=== PATIENT | female | born 1950 | race Caucasian/White ===

== ENCOUNTER → 2020-08-11 09:38 | Outpatient (BNVA) | payer MEDICARE, OTHER, SELFPAY | PROVIDERS: PCP Nurse Practitioner Family; Referring Provider Nurse Practitioner Family; Visit Provider Nurse Practitioner Gerontology | DX: N39.0 Urinary tract infection, site not specified (principal); R31.9 Hematuria, unspecified; E11.9 Type 2 diabetes mellitus without complications | CPT/HCPCS: 81003; 99204 ==

== ENCOUNTER 2020-08-11 18:31 | Outpatient (REF) | payer MEDICARE, OTHER, SELFPAY | END 2020-08-11 18:51 | LOC: LBN 18:31 | PROVIDERS: PCP Nurse Practitioner Family; Visit Provider Nurse Practitioner Gerontology | DX: N39.0 Urinary tract infection, site not specified (principal) | CPT/HCPCS: 87086 ==

== ENCOUNTER 2020-08-18 00:38 | Outpatient (CLI) | payer MEDICARE, OTHER, SELFPAY ==
--- NOTE | 2020-08-18 07:00 | DI.CT_ITS ---
EXAM: CT ABDOMEN PELVIS WO/W CLINICAL HISTORY: recurrent UTI,HEMATURIA,R31.9,N39.0 TECHNIQUE: Imaging Protocol: Axial computed tomography images with coronal and sagittal reformatted images were created and reviewed CONTRAST MATERIAL: Intravenous: Omnipaque 350 Contrast volume:100 mL Oral: No COMPARISON: No exams were available for comparison FINDINGS: ABDOMEN: Lung Bases: Normal where visualized. Mild coronary artery calcification. Liver: Normal density. No measurable mass. Decreased attenuation is seen adjacent to the falciform li gament likely reflecting focal fatty infiltration. There is a tiny hypodensity in the right lobe of the liver. It is too small for further characterization, but likely reflects a small cyst. Portal, Superior Mesenteric, and Splenic Veins: Unremarkable. Gallbladder and Biliary Tract: No radiodense calculus or dilation. Pancreas: Pancreatic atrophy. No pancreatic mass or inflammation. Spleen: Normal. Adrenals: There is a small subcentimeter left adrenal nodule likely reflecting an adenoma. The right adrenal gland is unremarkable. Kidneys: Normal size, contour and axis. 1.1 cm nonobstructing stone in the lower pole of the left kid paulina. Mild prominence of the left renal collecting system but no radiopaque ureteral stone is identif ied. No masses seen. There is mild enhancement of the wall of the left ureter proximally. Mild asso ciated soft tissue stranding is noted. Note is made of a circum aortic left renal vein. Delayed giorgi ges of the renal collecting systems shows no evidence of obstruction. Abdominal Aorta: Abdominal portion non-dilated. Atherosclerosis. Bowel: No obstruction or bowel wall thickening. Appendix is unremarkable. Peritoneal Cavity: No ascites, collection or mesenteric inflammatory response. Lymph Nodes: Within normal limits. Bones: Degenerative changes are seen in the spine. Small round sclerotic focus is seen in the left s acrum likely reflecting a bone island. No aggressive osseous lesions are identified. Soft Tissues: Unremarkable. PELVIS: Bladder: Symmetric distention, no gross wall thickening. No bladder stone. Delayed images of the uri nary bladder show no filling defects. Reproductive Organs: Unremarkable as visualized. Lymph Nodes: Within normal limits. Bones: Please see above. IMPRESSION: 1. Nonobstructing 1.1 cm left lower pole stone. 2. Mild prominence and wall enhancement of the left renal collecting system. Differential considerat ions include a recently passed stone, infectious or inflammatory process. Please correlate clinicall y. RADIATION DOSE DELIVERED: 4,019.2mGy.cm Total DLP 4,019.2mGy.cm Total DLP DATA REPOSITORY: All CT scans at this facility are submitted to the National Radiology Data Registry (NRDR) Dose Index Registry (DIR) with the [employer] ([employer]). RADIATION OPTIMIZATION: All CT scans at this facility use at least one of these dose optimization te chniques: automated exposure control; mA and/or kV adjustment per patient size (includes targeted exa ms where dose is matched to clinical indication); or iterative reconstruction.
[2020-08-18 08:53] LABS: CREATININE 0.85 mg/dL (0.55-1.02)
[2020-08-18] MEDS: Omnipaque 350 MG/ML 100 ML BTL IJ (09:19)
[2020-08-18] MEDS: Normal Saline - Diluent 50 ML VIAL IV ×2 (09:20→09:21)
[2020-08-18] MEDS: Normal Saline Flush 10 ML SYR IVP (09:21)
== END 2020-08-18 00:58 ==
PROVIDERS: PCP Nurse Practitioner Family; Visit Provider Nurse Practitioner Gerontology
DX: N20.0 Calculus of kidney (principal); R31.9 Hematuria, unspecified; N39.0 Urinary tract infection, site not specified; E11.9 Type 2 diabetes mellitus without complications
CPT/HCPCS: 99213; 74178; 82565; J3490

== ENCOUNTER 2020-09-25 03:12 | Outpatient (CLI) | payer MEDICARE, OTHER, SELFPAY ==
[2020-09-26 22:16] LABS: SARS-CoV-2 RNA Source Nasal/Nares
[2020-09-26 22:17] LABS: SARS-CoV-2 RNA Not Detected (NotDetected)
== END 2020-09-25 03:32 ==
PROVIDERS: Urology; PCP Registered Nurse; Visit Provider Nurse Practitioner Gerontology
DX: Z11.59 Encounter for screening for other viral diseases (principal); Z01.818 Encounter for other preprocedural examination
CPT/HCPCS: U0003

== ENCOUNTER 2020-09-29 07:44 | Day surgery (SDC) | payer MEDICARE, OTHER, SELFPAY ==
[2020-09-29 07:57] VITALS: BP 128/65; PULSE 75; RESP 22; TEMP 36.7; O2SAT 96
[2020-09-29] MEDS: Lactated Ringers 1,000 ML 80 ML IV (08:32)
--- NOTE | 2020-09-29 09:38 | W.PM.HP.N ---
Date of service: 09/29/20 Time of Service: 10:02 Assessment and Plan Assessment and plan (1) Left renal stone: Status: Acute (2) Recurrent UTI: Status: Acute Assessment and plan: We will move ahead with left ureteroscopic stone manipulation History of Present Illness History of Present Illness Chief Complaint: Left kidney stone Narrative: MAURA Reyna is a 69 y/o female with recurrent UTIs. She notes that they have been going for years and she has been self treating. This past year she had decided to go to her PCP for treatment since her self treatments have not been effective recently. She notes having several UTIs over the summer. She denies seeing blood in her urine. Her typical symptoms involve dysuria, suprapubic discomfort, and a change in her frequency. At times up an infection she will also have urge incontinence. She notes that she can go the bathroom every 2-3 hours during the day. She questions if she empties completely. She does not have flank pain. She states that within a week of taking an antibiotic for UTI, the symptoms return and she goes back for another course. She notes that within the last month she was started on estradiol cream through her PCP's office. She also notes that she is using 2 different types of cream recommended by Dr. Singh the labial area. As part of her evaluation, a CT scan was done. She was found to have a greater than 1 cmm left lower pole stone with mild prominence of the collecting system. She presents for ureteroscopic stone manipulation. Review of Systems Narrative: No fevers or chills No vision change or dysphasia No thyroid dysfunction. Hx diabetes No shortness of breath, cough or hemoptysis No chest pain or palpitations No nausea, vomiting, hepatitis, ulcers, jaundice No seizures, strokes or peripheral neuropathy No bleeding disorders or anemia No gout PFSH Medical History Allergic rhinitis Breast lump Constipation Dysuria Elevated blood pressure reading Fever Hemorrhoids HLD (hyperlipidemia) Lichen sclerosus of female genitalia Obesity Posterior vaginal wall prolapse Type 2 diabetes mellitus Surgical History H/O eye surgery to repair retina Social History Smoking/Tobacco Use Status: Never Smoking risk assessment performed?: Yes Alcohol Intake: never Drug use: Never Substance use type: does not use Current gender identity: female Do you feel safe at home: Yes Do you feel safe in your relationship?: Yes Meds Home Medications and Allergies Home Medications Medication Instructions Recorded Confirmed Type atorvastatin 10 mg tablet 10 mg PO DAILY 07/22/20 09/29/20 History cholecalciferol (vitamin D3) 25 25 mcg PO DAILY 07/22/20 09/29/20 History mcg (1,000 unit) capsule clobetasol 0.05 % topical ointment 1 applic TOPICAL QHS 07/22/20 09/29/20 History estradiol 1 g VAGINAL .2xweek g 07/22/20 09/29/20 History insulin glargine 100 unit/mL (3 20 unit SUBCUT QPM 07/22/20 09/29/20 History mL) subcutaneous pen insulin lispro 100 unit/mL 15 unit SUBCUT TID 07/22/20 09/29/20 History subcutaneous pen lisinopril 5 mg tablet 5 mg PO DAILY 07/22/20 09/29/20 History magnesium oxide 400 mg (241.3 mg 400 mg PO DAILY 07/22/20 09/29/20 History magnesium) tablet meclizine 25 mg tablet 25 mg PO TID PRN 07/22/20 09/29/20 History [id number] fumarate 18 1 tab-cap PO DAILY 07/22/20 09/29/20 History mg-FA 600 mcg-vit K 40 mcg capsule olopatadine 0.1 % eye drops 1 drp OPHTHALMIC (EYE) BID 07/22/20 09/29/20 History potassium gluconate 595 mg (99 mg) 595 mg PO DAILY 07/22/20 09/29/20 History tablet inulin [Fiber Gummies] 2 g PO DAILY PRN 09/25/20 09/29/20 History Allergies Allergy/AdvReac Type Severity Reaction Status Date / Time kiwi Allergy Unverified 09/29/20 08:03 Exam Const General: cooperative and comfortable Neck Neck: supple Resp Effort & Inspection: normal respiratory effort Auscultation: clear to auscultation bilaterally Cardio Rate: regular rate Rhythm: regular rhythm GI Inspection: normal to inspection Palpation: soft and no masses Neuro General: patient alert, patient awake and patient oriented x3 Results Last Vital Signs Temp 36.7 C 09/29/20 07:57 Pulse 75 09/29/20 07:57 Resp 22 09/29/20 07:57 BP 128/65 09/29/20 07:57 Pulse Ox 96 09/29/20 07:57 COVID-19 Screening Have you, or household traveled for leisure in last 14 days?: No
[2020-09-29] MEDS: ceFAZolin 2 GM/50 ML BAG IVPB (10:35)
--- NOTE | 2020-09-29 10:45 | DI.RAD_ITS ---
EXAM: XR RETROGRADE IN OR CLINICAL HISTORY: left stone. TECHNIQUE: Fluoroscopy was provided for the referring physician for guidance with performing retrogr nicole procedure. COMPARISON: CT CT ABDOMEN PELVIS WO/W from 08/18/2020 FINDINGS: Please see procedure note for details. Fluoro Time: 38.8 seconds RADIATION DOSE DELIVERED:
[2020-09-29] MEDS: Omnipaque 300 MG/ML 50 ML BTL (11:12)
[2020-09-29] MEDS: Lidocaine 2% Jelly 6 ML SYR (11:13)
--- NOTE | 2020-09-29 12:04 | W.PM.DSUDISC ---
Discharge Plan Disposition Patient Disposition: HOME Condition: Stable Discharge Details Attending Provider: Warren Zelaya Primary Care Provider: Ella Vázquez Home Meds and New Rx's Prescriptions: New tramadol 50 mg tablet 50 mg PO Q6H PRNQty: 25 RF: 0 ciprofloxacin HCl 250 mg tablet 250 mg PO BID Qty: 14 RF: 0 No Action atorvastatin 10 mg tablet 10 mg PO DAILY RF: 0 clobetasol 0.05 % ointment 1 applic topical QHS RF: 0 estradiol 0.01 % (0.1 mg/gram) cream 1 g vaginal .2xweek RF: 0 insulin lispro [Humalog KwikPen Insulin] 100 unit/mL insulin pen 15 unit subcut TID RF: 0 lisinopril 5 mg tablet 5 mg PO DAILY RF: 0 magnesium oxide 400 mg (241.3 mg magnesium) tablet 400 mg PO DAILY RF: 0 meclizine 25 mg tablet 25 mg PO TID PRNRF: 0 Multi For Her 18 mg iron-600 mcg-40 mcg capsule 1 tab-cap PO DAILY RF: 0 olopatadine 0.1 % drops 1 drp ophthalmic (eye) BID RF: 0 potassium gluconate 595 mg (99 mg) tablet 595 mg PO DAILY RF: 0 cholecalciferol (vitamin D3) 25 mcg (1,000 unit) capsule 25 mcg PO DAILY RF: 0 Lantus Solostar U-100 Insulin 100 unit/mL (3 mL) insulin pen 20 unit subcut QPM RF: 0 Fiber Gummies 2 gram Tablet,Chewable 2 g PO DAILY PRNRF: 0 Discharge Instructions Additional Instructions: Followup 1 week for stent removal - tell my office that pt has string on stent Followup with renal US 6 to 8 weeks (can be later than that, but not sooner than that) no need to strain urine scripts for tramadol and cipro sent to pharmacy Activity:: Activity as Tolerated Shower/Bathe:: 24 hours Diet:: As Tolerated DS: Diagnosis Discharge Diagnosis (1) Left renal stone: Status: Acute (2) Recurrent UTI: Status: Acute
--- NOTE | 2020-09-29 12:13 | W.PM.OP ---
Date of service: 09/29/20 Time of Service: 12:13 Operative Note Operative Note DATE OF PROCEDURE: 09/29/20 PRE-OP DIAGNOSIS: Left kidney stone POST-OP DIAGNOSIS: same PROCEDURE: cystoscopy, left retrograde pyelogram, left flexible ureteroscopy, holmium laser lithotripsy of stone, insert left ureteral stent SURGEON: Warren Zelaya ANESTHESIA: other (general) ESTIMATED BLOOD LOSS: 50 PATHOLOGY: none sent COMPLICATIONS: None Patient was transported to: PACU Patient's condition: stable Implants: 4.8 Serbian by 22 to 30 cm left ureteral stent Indications: This is a 69-year-old woman who has a history of recurrent Klebsiella urinary tract infections. As part of her evaluation, she underwent CT scan which demonstrated a 12 mm stone in the lower pole of the left kidney. We had recommended percutaneous nephrolithotomy as a means of rendering the patient stone free, but she preferred to have her procedure locally. She comes in for flexible ureteroscopy with holmium laser lithotripsy Findings: stone in left lower pole calyx Procedure Description: The patient was brought to the operating room on 09/29/2020. After successful induction of general anesthesia, she was placed in the dorsal lithotomy position. She was given preoperative IV antibiotics. Her genitalia was prepped and draped. 2% Xylocaine jelly was instilled into the urethra to act as a local anesthetic. A 22 Serbian rigid cystoscope was then passed through the urethra into the bladder. Bladder was inspected with a 30 degree lens. The bladder appeared normal with no papillary or nodular lesions. Both ureteral orifice ease appeared normal. The left ureteral orifice was cannulated with a 6 Serbian access catheter. Retrograde pyelogram was obtained by injecting Omnipaque through the access cath under fluoroscopic guidance. No stones were seen within the ureter. A filling defect was seen in the lower pole calyx. A Glidewire was then advanced through the access catheter and the catheter was removed. A dual-lumen catheter was then advanced over the wire and a second wire was positioned. We chose one of the wires as a working wire and the other is a safety wire. A ureteral access sheath was then advanced over the working wire. The working wire was removed leaving the safety wire in place. The flexible ureteroscope was then passed through the access sheath into the left kidney. The calyces were then inspected and a large stone could be seen in the lower pole calyx. I then used a 272 ?m holmium laser fiber to treat the stone. We used a power setting of 800 and a rate of 8. The stone fragmented fairly well. Given the acute angle to access the stone, I was unable to extract stone fragments. We will elect to place a 4.8 Serbian variable length stent in the kidney. We positioned the stent over the safety wire. The proximal end was curled in the upper pole calyx and the distal end was curled in the bladder. The patient tolerated this procedure well with no complications. She will return in 1 week to have her stent removed.
[2020-09-29 12:16] VITALS: BP 105/36; PULSE 72; RESP 18; TEMP 36; O2SAT 93
[2020-09-29 12:21] VITALS: BP 83/44; PULSE 73; RESP 18; TEMP 36; O2SAT 99
[2020-09-29 12:26] VITALS: BP 112/32; PULSE 68; RESP 14; TEMP 36.4; O2SAT 97
[2020-09-29 12:40] VITALS: BP 110/39; PULSE 70; RESP 18; TEMP 36.5; O2SAT 95
[2020-09-29 12:55] VITALS: BP 111/39; PULSE 77; RESP 18; TEMP 36.5; O2SAT 95
[2020-09-29] MEDS: Phenazopyridine 200 MG TAB PO (13:14)
== END 2020-09-29 14:04 | disposition home or self-care (01) ==
PROVIDERS: PCP Registered Nurse; Visit Provider Urology
PROC: (CPT 52356; principal; 2020-09-29 09:15)
DX: N20.0 Calculus of kidney (principal); Z87.440 Personal history of urinary (tract) infections; E78.5 Hyperlipidemia, unspecified; E11.9 Type 2 diabetes mellitus without complications
CPT/HCPCS: 52356; NC; 74420; J0690; J1100; J1885; J2001; J2250; J2405; J2704; Q9967

== ENCOUNTER → 2020-10-06 08:28 | Outpatient (BNVA) | payer MEDICARE, OTHER, SELFPAY | PROVIDERS: PCP Registered Nurse; Referring Provider Registered Nurse; Visit Provider Nurse Practitioner Gerontology | DX: Z48.816 Encounter for surgical aftercare following surgery on the genitourinary system (principal); N20.0 Calculus of kidney; E11.9 Type 2 diabetes mellitus without complications; N39.0 Urinary tract infection, site not specified | CPT/HCPCS: 81003; 99213 ==

== ENCOUNTER 2020-10-06 10:01 | Outpatient (REF) | payer MEDICARE, OTHER, SELFPAY | END 2020-10-06 10:21 | LOC: LBN 10:01 | PROVIDERS: PCP Registered Nurse; Visit Provider Nurse Practitioner Gerontology | DX: N39.0 Urinary tract infection, site not specified (principal) | CPT/HCPCS: 87086 ==

== ENCOUNTER 2021-03-30 00:47 | Outpatient (CLI) | payer MEDICARE, OTHER, SELFPAY ==
--- NOTE | 2021-03-30 07:00 | DI.US_ITS ---
Exam(s) US RENAL EXAM: US RENAL CLINICAL HISTORY: r/o hydronephrosis after ureteroscopy,LT RENAL STONE,N20.0 TECHNIQUE: Ultrasound of both kidneys performed using standard protocol. COMPARISON: CT CT ABDOMEN PELVIS WO/W from 08/18/2020 FINDINGS: RIGHT KIDNEY: Measures 10.9 cm in length. No cysts evident. Normal cortical thickness and corticomedullary differen tiation .No solid masses No intrarenal calculi nor hydronephrosis.Extrarenal pelvis noted. LEFT KIDNEY: Measures 11.6 cm in length. No cysts evident. Normal cortical thickness and corticomedullary differe ntiaion. No solids masses. There is a 4-5 millimeter nonobstructive calculus in the lower pole regio n. URINARY BLADDER: Prevoid volume is 135 cc Postvoid volume is 0 cc No evidence of bladder mass nor diverticuli. Ureterovesical jets: Both identified and appear symmetrical IMPRESSION: 1. There is a small 4-5 millimeter nonobstructive calculus in lower pole of the left kidney. This a ppears slightly smaller than its size on the CT scan of August 2020. 2. No significant findings in the opposite-right kidney. Extrarenal pelvis noted. No obvious abnormality in the urinary bladder. DATA REPOSITORY:
== END 2021-03-30 01:07 ==
PROVIDERS: PCP Registered Nurse; Visit Provider Urology
DX: N20.0 Calculus of kidney (principal)
CPT/HCPCS: 76770

== ENCOUNTER → 2021-04-02 09:45 | Outpatient (BNVA) | payer MEDICARE, OTHER, SELFPAY | PROVIDERS: PCP Nurse Practitioner Family; Referring Provider Registered Nurse; Visit Provider Nurse Practitioner Gerontology | DX: N20.0 Calculus of kidney (principal) | CPT/HCPCS: 99213 ==

== ENCOUNTER → 2021-07-15 14:11 | Outpatient (BNVA) | payer MEDICARE, OTHER, SELFPAY | PROVIDERS: PCP Nurse Practitioner Family; Referring Provider Nurse Practitioner Family; Visit Provider Nurse Practitioner Gerontology | DX: N20.0 Calculus of kidney (principal); N39.0 Urinary tract infection, site not specified | CPT/HCPCS: 81003; 99214 ==

== ENCOUNTER 2021-07-15 17:49 | Outpatient (REF) | payer MEDICARE, OTHER, SELFPAY | END 2021-07-15 17:50 | disposition home or self-care (01) | LOC: LBN 17:49 | PROVIDERS: PCP Nurse Practitioner Family; Visit Provider Nurse Practitioner Gerontology | DX: N39.0 Urinary tract infection, site not specified (principal) | CPT/HCPCS: 87077; 87086 ==

== ENCOUNTER 2021-08-21 00:16 | Outpatient (CLI) | payer MEDICARE, OTHER, SELFPAY ==
--- NOTE | 2021-08-21 | DI.RAD_ITS ---
Exam(s) XR ABDOMEN FLAT PLATE EXAM: 2D digital imaging was performed. CLINICAL HISTORY: MONITORING LT KIDNEY STONES, H/O RENAL CALCULI,Z87.442,N20.0,CALCULUS OF. COMPARISON: CT CT RENAL COLIC from 06/21/[address] RENAL COLIC from 06/21/2021 TECHNIQUE: Supine views of the abdomen performed. FINDINGS: BOWEL GAS PATTERN: Nondistended. Normal quantity of stool. CALCIFICATIONS: 10 millimeter stone lower pole left kidney, grossly unchanged when compared with the previous CT. OSSEOUS STRUCTURES: Degenerative changes. Bone island left ilium. OTHER FINDINGS: Lung bases clear. IMPRESSION: 1. Nonobstructive bowel gas pattern. 2. Stable small appearance of the stone to lower pole of the left kidney. DATA REPOSITORY: RADIATION DOSE DELIVERED:
== END 2021-08-21 00:36 ==
PROVIDERS: PCP Nurse Practitioner Family; Visit Provider Nurse Practitioner Gerontology
DX: N20.0 Calculus of kidney (principal); Z87.442 Personal history of urinary calculi
CPT/HCPCS: 74018

== ENCOUNTER → 2022-05-06 01:43 | Outpatient (CLI) | payer MEDICARE, OTHER, SELFPAY ==
--- NOTE | 2022-05-06 07:35 | DI.US_ITS ---
Exam(s) US RENAL EXAM: US RENAL CLINICAL HISTORY: Monitoring size and position of left kidney stone,N20.0. TECHNIQUE: Lopez scale, color and spectral Doppler were used. COMPARISON: US US RENAL from 03/30/[address] RENAL COLIC from 06/21/2021 CR XR ABDOMEN FLAT PLATE from 08/21/2021 FINDINGS: Renal size in cm: Right: 10.3. Left: 10.8. Echogenicity: Normal. Hydronephrosis: No. Cyst or mass: No. Nephrolithiasis: There is a 1 cm stone in the inferior pole of the left kidney. Other findings: None. Bladder:Normal. Ureteral jets: Right: Visualized and unremarkable. Left: Visualized and unremarkable. Prevoid vol:69 cc Postvoid vol:Not obtained on this examination. Renal color flow: Symmetric and within normal limits. IMPRESSION: 1 cm left lower pole stone. No hydronephrosis. DATA REPOSITORY:
== END ==
PROVIDERS: PCP Nurse Practitioner Family; Visit Provider Nurse Practitioner Gerontology
DX: N20.0 Calculus of kidney (principal)
CPT/HCPCS: 76770

== ENCOUNTER → 2022-05-11 13:02 | Outpatient (BNVA) | payer MEDICARE, OTHER, SELFPAY | PROVIDERS: PCP Nurse Practitioner Family; Referring Provider Nurse Practitioner Family; Visit Provider Nurse Practitioner Gerontology | DX: N20.0 Calculus of kidney (principal); N39.0 Urinary tract infection, site not specified | CPT/HCPCS: 81003; 99213 ==

== ENCOUNTER 2022-05-11 16:02 | Outpatient (REF) | payer MEDICARE, OTHER, SELFPAY | END 2022-05-11 16:03 | disposition home or self-care (01) | LOC: LBN 16:02 | PROVIDERS: PCP Nurse Practitioner Family; Visit Provider Nurse Practitioner Gerontology | DX: N39.0 Urinary tract infection, site not specified (principal) | CPT/HCPCS: 87086 ==

== ENCOUNTER 2023-05-05 01:30 | Outpatient (CLI) | payer MEDICARE, OTHER, SELFPAY ==
--- NOTE | 2023-05-05 08:30 | DI.US_ITS ---
Exam(s) US RENAL EXAM: US RENAL CLINICAL HISTORY: monitoring renal stone,LT,N20.0. TECHNIQUE: Lopez scale, color and spectral Doppler were used. COMPARISON: US US RENAL from 03/30/[address] RENAL COLIC from 06/21/2021 US US RENAL from 05/06/2022 FINDINGS: Renal size in cm: Right: 9.6 left: 9.7 Echogenicity: Normal Hydronephrosis: Stable appearance of mildly prominent right renal pelvis. Cyst or mass: No Nephrolithiasis: 1.1 centimeter stone lower pole left kidney. Bladder:Normal . Both ureteral jets were visualized. Prevoid vol: 226 Postvoid vol:0 IMPRESSION: 11 millimeter stone lower pole left kidney. DATA REPOSITORY:
== END 2023-05-05 01:50 ==
LOC: DI 01:31
PROVIDERS: PCP Nurse Practitioner Family; Visit Provider Nurse Practitioner Gerontology
DX: N20.0 Calculus of kidney (principal)
CPT/HCPCS: 76770

== ENCOUNTER → 2023-05-11 12:53 | Outpatient (BNVA) | payer MEDICARE, OTHER, SELFPAY | PROVIDERS: PCP Nurse Practitioner Family; Visit Provider Nurse Practitioner Gerontology | DX: N20.0 Calculus of kidney (principal); Z87.440 Personal history of urinary (tract) infections | CPT/HCPCS: 99213 ==

== ENCOUNTER 2024-04-20 05:52 | Day surgery (SDC) | payer MEDICARE, OTHER, SELFPAY ==
[2024-04-20 06:40] VITALS: BP 154/57; PULSE 79; RESP 16; TEMP 36.4; O2SAT 96
--- NOTE | 2024-04-20 07:04 | W.ANESPRE ---
General Info Date of Service Date Performed: 04/20/24 Height: 5 ft 1 in Weight: 80.8 kg Body Mass Index (BMI): 33.6 Surgical Procedure: Operation Date: 04/20/24 07:40 Proposed Procedure Side Surgeon p Cataract Extraction with IOL Implant Right Samir Nixon MD Meds Allergies and Home Medications Allergies Allergy/AdvReac Type Severity Reaction Status Date / Time ciprofloxacin Allergy palpitation Verified 04/20/24 06:48 s kiwi AdvReac Other (See Verified 04/20/24 06:48 Comment) Home Medication Medication Instructions Recorded cholecalciferol (vitamin D3) 25 25 mcg PO DAILY 07/22/20 mcg (1,000 unit) capsule clobetasol 0.05 % topical ointment 1 applic topical QHS 07/22/20 estradiol 0.01% (0.1 mg/gram) 1 g vaginal .2xweek 07/22/20 vaginal cream insulin lispro 100 unit/mL 15 unit subcut TID 07/22/20 subcutaneous pen (Humalog KwikPen (U-100) Insulin) lisinopril 5 mg tablet 5 mg PO DAILY 07/22/20 magnesium oxide 400 mg (241.3 mg 400 mg PO DAILY 07/22/20 magnesium) tablet meclizine 25 mg tablet 25 mg PO TID PRN 07/22/20 [id number] fumarate 18 1 tab-cap PO DAILY 07/22/20 mg-FA 600 mcg-vit K 40 mcg capsule (Multi For Her) olopatadine 0.1 % eye drops 1 drp ophthalmic (eye) BID 07/22/20 potassium gluconate 595 mg (99 mg) 595 mg PO DAILY 07/22/20 tablet inulin 2 gram chewable tablet 2 g PO DAILY PRN 09/25/20 (Fiber Gummies) tramadol 50 mg tablet 50 mg PO Q6H PRN #25 tabs 09/29/20 atorvastatin 10 mg tablet 20 mg PO DAILY 05/11/23 Current Visit Medications: Current Medications Generic Name Dose Route Start Last Admin Trade Name Freq PRN Reason Stop Dose Admin Acetaminophen 1,000 mg 04/20/24 06:00 Acetaminophen 500 Mg Tab PO 05/20/24 05:59 Q4H PRN PRN Balanced Salt Solution 500 ml 04/20/24 06:00 Balanced Salt Soln.-Plus 500 Ml Bag OP 05/20/24 05:59 DIRECTED [facility] Miscellaneous Medication 0 ml 04/20/24 06:00 Prednisolone 1%, Moxifloxacin 0.5%, Bromfenac 0.09% 5ml Btl OD 05/20/24 05:59 DIRECTED [facility] Miscellaneous Medication 0 ml 04/20/24 06:00 04/20/24 06:57 Tropicam./Phenyleph. (1/2.5%) 10 Ml Btl OD 05/20/24 05:59 1 drp DIRECTED [facility] Administration Tetracaine HCl 0 ml 04/20/24 06:00 Tetracaine 0.5% 4 Ml Btl OD 05/20/24 05:59 DIRECTED [facility] PFSH Active Problems Active Problems: Problem Status Onset Code Nuclear age-related cataract, right eye H25.11 Left renal stone N20.0 Recurrent UTI N39.0 Medical History Medical History Diabetes type I w/ pump Elevated blood pressure reading Breast lump Dysuria Fever Lichen sclerosus of female genitalia Posterior vaginal wall prolapse Constipation Allergic rhinitis Hemorrhoids Obesity HLD (hyperlipidemia) Type 2 diabetes mellitus Pt. is Type I not type II Surgical History Surgical History H/O eye surgery to repair retina Tobacco Smoking/Tobacco Use Status: Never Alcohol Alcohol Intake: never Substance Use Substance use: Never Substance use type: does not use Vital Signs and Lab Results Vital Signs Most Recent Vital Signs in EMR: Most Recent Vital Signs Temp Pulse Resp BP Pulse Ox 36.4 C L 79 16 154/57 H 96 04/20/24 06:40 04/20/24 06:40 04/20/24 06:40 04/20/24 06:40 04/20/24 06:40 Point of Care Results Point of Care Results: blood sugar 125 Lab Results Blood Type / Crossmatch: No Data to Display Complete Blood Count: No Data to Display Complete Metabolic Panel: No Data to Display Liver Function Panel: No Data to Display Coagulation Panel: No Data to Display Cardiac Panel: No Data to Display Arterial Blood Gas: No Data to Display Venous Blood Gas: No Data to Display Pancreas Panel: No Data to Display Thyroid Panel: No Data to Display Infectious Disease: No Data to Display Blood Cultures: No Data to Display Toxicology Panel: No Data to Display Anesthesia Assessment and Plan Anesthesia History Personal History: No History of Anesthesia Complications Family History: No Family History of Anesthesia Complications Exercise Tolerance Exercise Tolerance: Metabolic Equivalents>4 Pertinent Negatives Pertinent Negatives: No Symptoms of GERD, No Major Cardiovascular Symptoms or Complaints, No Major Pulmonary Symptoms or Complaints and No History of CVA/TIA Cardiac & Pulmonary Exam Cardiac Exam: Normal S1/S2 Heart Sounds Pulmonary Exam: Clear Bilateral Breath Sounds Implantable Cardiac Device Does patient have a Pacemaker or an ICD?: No Airway Exam Known Difficult Airway: No Mallampati Class: 2 Mouth Opening: Normal (> 3cm) Thyromental Distance: Greater than 3 cm Neck Range of Motion: Full ROM Neck Circumference: Normal Teeth Condition: Normal Dentition ASA Classification ASA Score: ASA 3 Emergency Case?: No NPO Status NPO Status: NPO Clears >2 hours, Solids >8 hours Anesthesia Plan Resuscitation Status: Full Code Anesthesia Technique: MAC Anesthesia Airway Planned: Natural Airway Monitors Used: Standard Monitors
[2024-04-20 07:07] VITALS: BMI 33.6
[2024-04-20] MEDS: Lidocaine 1% Pres-Free 5 ML VIAL (07:29)
[2024-04-20] MEDS: Duovisc Viscoelastic System EACH 1 EACH (07:31)
[2024-04-20] MEDS: Balanced Salt Soln.-PLUS 500 ML BAG OP (07:33)
[2024-04-20] MEDS: Povidone-Iodine Ophth 30 ML BTL (07:33)
[2024-04-20] MEDS: Tetracaine 0.5% 4 ML BTL OD (07:34)
[2024-04-20 07:53] VITALS: BP 127/54; PULSE 67; RESP 18; TEMP 36.3; O2SAT 98
--- NOTE | 2024-04-20 07:54 | W.PM.DSUDISC ---
Date of service: 04/20/24 Time of Service: 07:55 Discharge Plan Disposition Patient Disposition: Home Discharge Details Attending Provider: Samir Nixon Primary Care Provider: Enoc Archer Home Meds and New Rx's Prescriptions: No Action clobetasol 0.05 % ointment 1 applic topical QHS estradiol 0.01 % (0.1 mg/gram) cream 1 g vaginal .2xweek insulin lispro [Humalog KwikPen Insulin] 100 unit/mL insulin pen 15 unit subcut TID Rx Instructions: 15-20 units TID lisinopril 5 mg tablet 5 mg PO DAILY magnesium oxide 400 mg (241.3 mg magnesium) tablet 400 mg PO DAILY meclizine 25 mg tablet 25 mg PO TID PRN Multi For Her 18 mg iron-600 mcg-40 mcg capsule 1 tab-cap PO DAILY olopatadine 0.1 % drops 1 drp ophthalmic (eye) BID Rx Instructions: separate doses by at least 6-8 hours potassium gluconate 595 mg (99 mg) tablet 595 mg PO DAILY cholecalciferol (vitamin D3) 25 mcg (1,000 unit) capsule 25 mcg PO DAILY atorvastatin 10 mg tablet 20 mg PO DAILY Fiber Gummies 2 gram Tablet,Chewable 2 g PO DAILY PRN tramadol 50 mg tablet 50 mg PO Q6H PRNQty: 25 0RF Discharge Instructions Stand Alone Forms: [facility] Post-Op CataractClaudio (DSU) Discharge Orders Discharge Orders: Discharge Order (Routine); Ordered 04/20/24 Ordered By: Samir Nixon DS: Diagnosis Discharge Diagnosis (1) Nuclear age-related cataract, right eye: Status: Resolved
--- NOTE | 2024-04-20 07:55 | ROE_ITS ---
Date of service: 04/20/24 Time of Service: 07:55 Operative Note Operative Note DATE OF PROCEDURE: 04/20/24 PRE-OP DIAGNOSIS: Nuclear cataract, right eye Status post pars plana vitrectomy for vitreous hemorrhage, right eye POST-OP DIAGNOSIS: same PROCEDURE: Cataract extraction using phacoemulsification with intraocular lens implant, right eye SURGEON: Samir Nixon ANESTHESIA TYPE: Local By Surgeon and MAC Refer to Anesthesia Record ESTIMATED BLOOD LOSS: 0 PATHOLOGY: none sent COMPLICATIONS: None Patient was transported to: same day Patient's condition: stable Implants: Heriberto Clareon [id number] Indications: Progressive decreased vision due to cataract, right eye Procedure Description: CATARACT SURGERY OPERATIVE REPORT PREOPERATIVE DIAGNOSIS: Nuclear cataract, right eye Status post pars plana vitrectomy for vitreous hemorrhage, right eye POSTOPERATIVE DIAGNOSIS: Same OPERATION: Cataract extraction using phacoemulsification with posterior chamber intraocular lens implant, right eye. IOL: IOL T Rail Turner/Model: Heriberto Clareon [id number] IOL Power: + 22.0 diopters IOL Serial Number: [id number] Optic Diameter: 6.0mm Haptic/Overall Diameter: 13.0mm PHACO INFO: Heriberto Centurion Vision System with OZil and Active Fluidics Cumulative Dispersed Energy (CDE): 7.35 seconds SURGEON: Samir Nixon MD, RIKKI ANESTHESIA: Monitored Anesthesia Care (MAC), with local sub-tenon's anesthetic infiltration COMPLICATIONS: None SPECIMENS: None INDICATIONS FOR PROCEDURE: The patient is a 73-year-old lady who has previously suffered a vitreous hemorrhage in the right eye and underwent subsequent pars plana vitrectomy at [facility] in 2016. She has developed a significant nuclear cataract in the right eye and desires cataract surgery there and attempt to improve and maximize her vision. The option of cataract surgery was offered to the patient and she wished to proceed. See office notes for detailed information. PROCEDURE: The correct surgical eye was identified and marked as the right eye and the pupil was dilated in the preoperative area using mydriatics and cycloplegics. The dilated pupil size was 6.0 mm. The patient elected to proceed without oral sedation. The patient was brought to the operating room where cardiopulmonary monitoring was instituted and surgical time-out was performed, confirming the correct operative eye and IOL power. Topical anesthesia was administered and ophthalmic povidone-iodine 5% was instilled into the conjunctival fornices. The slava-ocular area was prepped with Betadine 10% solution and draped in the usual sterile fashion for intraocular surgery, including an aperture drape. A Tegaderm transparent film dressing was cut in half and used to cover the lashes and lid margins. Care was taken to sequester the lashes and lid margins under the Tegaderm dressing. A lid speculum was placed between the lids of the operative eye and the Heriberto LuxOR Revalia operating microscope was maneuvered into position. Nicole scissors were then used to make a conjunctival buttonhole approximately 6mm posterior to the limbus in the inferonasal quadrant. Blunt dissection was carried out to expose bare sclera, and a blunt-tipped sub-tenon?s anesthesia cannula was introduced and passed posteriorly along the globe where non- preserved plain lidocaine was injected into posterior sub-Tenon?s space. A sideport knife was used to make a paracentesis port. Intraocular phenylephrine/lidocaine was injected into the anterior chamber. The anterior chamber was then filled with viscoelastic. A keratome knife was used to construct a two--plane clear corneal tunnel extending 2.0mm into clear cornea. A flap was raised on the anterior capsule and capsulorhexis forceps were used to complete a continuous curvilinear capsulorhexis of 5.0 mm. Balanced salt solution was then used to perform cortical cleaving hydrodissection and nuclear hydrodelineation until the lens could be freely rotated within the capsular bag. The lens nucleus was then disassembled and removed within the capsular bag and iris plane using phacoemulsification. Residual cortical material was removed using the I/A handpiece. The posterior capsule was carefully polished to remove as much residual lens epithelial cells as safely possible. The capsular bag was then inflated and the anterior chamber deepened with cohesive viscoelastic. The lens implant described above was inserted into the capsular bag using the Heriberto Autonome Injector. A Kuglen hook was used to dial the IOL into position. Residual viscoelastic was then removed first from posterior to the IOL, then from the anterior chamber using the I/A handpiece. The lens implant was noted to center nicely within the capsular bag. The incisions were stromally hydrated, and the anterior chamber was reformed using BSS. Then 0.5cc of moxifloxacin 1.0mg/ml were injected into the capsular bag and anterior chamber. The incisions were checked with a Weck spear and found to be secure. Several drops of ophthalmic povidone-iodine 5% were then applied to the eye followed by two drops of combination steroid/NSAID/antibiotic solution. The drapes were removed and a clear plastic protective eye shield was placed over the eye. The patient was then returned to Same Day Surgery in stable condition.
--- NOTE | 2024-04-20 08:07 | W.ANESPOSTOP ---
Postoperative Evaluation Date, Time and Location Date Performed: 04/20/24 Time Performed: 08:04 Patient Location: Day Surgery Unit Vital Signs Most Recent Imported Vital Signs: Most Recent Vital Signs Temp Pulse Resp BP Pulse Ox 36.3 C L 67 18 127/54 L 98 04/20/24 07:53 04/20/24 07:53 04/20/24 07:53 04/20/24 07:53 04/20/24 07:53 Pain Score Most Recent Pain Score: Most Recent Pain Score Pain Level 0 04/20/24 07:53 Assessment Mental Status: Awake (Alert & Oriented to Patient Baseline) Airway and Respiratory Function: Patent airway with normal (patient baseline) respiratory exam Cardiovascular Function: Hemodynamically Stable Hydration Status: Adequately Hydrated Nausea & Vomiting: No Nausea or Vomiting Pain: Pt. Denies Any Pain Peripheral Nerve Block: Patient did not receive a nerve block
== END 2024-04-20 08:11 | disposition home or self-care (01) ==
LOC: SUR 05:53
PROVIDERS: PCP Nurse Practitioner Family; Visit Provider Ophthalmology
PROC: (CPT 66984; principal; 2024-04-20 07:30)
DX: H25.11 Age-related nuclear cataract, right eye (principal); E11.9 Type 2 diabetes mellitus without complications
CPT/HCPCS: 66984; 00123; V2632; J2003

== ENCOUNTER 2024-05-04 08:31 | Day surgery (SDC) | payer MEDICARE, OTHER, SELFPAY ==
[2024-05-04 09:16] VITALS: BP 147/63; PULSE 73; RESP 16; TEMP 36.3; O2SAT 96
[2024-05-04 09:44] VITALS: BMI 33.6
--- NOTE | 2024-05-04 09:44 | W.ANESPRE ---
General Info Date of Service Date Performed: 05/04/24 Height: 5 ft 1 in Weight: 80.8 kg Body Mass Index (BMI): 33.6 Surgical Procedure: Operation Date: 05/04/24 10:55 Proposed Procedure Side Surgeon p Cataract Extraction with IOL Implant Left Samir Nixon MD Meds Allergies and Home Medications Allergies Allergy/AdvReac Type Severity Reaction Status Date / Time ciprofloxacin Allergy palpitation Verified 05/04/24 09:27 s kiwi AdvReac Other (See Verified 05/04/24 09:27 Comment) Home Medication Medication Instructions Recorded cholecalciferol (vitamin D3) 25 25 mcg PO DAILY 07/22/20 mcg (1,000 unit) capsule clobetasol 0.05 % topical ointment 1 applic topical QHS 07/22/20 estradiol 0.01% (0.1 mg/gram) 1 g vaginal .2xweek 07/22/20 vaginal cream insulin lispro 100 unit/mL 15 unit subcut TID 07/22/20 subcutaneous pen (Humalog KwikPen (U-100) Insulin) lisinopril 5 mg tablet 5 mg PO DAILY 07/22/20 magnesium oxide 400 mg (241.3 mg 400 mg PO DAILY 07/22/20 magnesium) tablet meclizine 25 mg tablet 25 mg PO TID PRN 07/22/20 [id number] fumarate 18 1 tab-cap PO DAILY 07/22/20 mg-FA 600 mcg-vit K 40 mcg capsule (Multi For Her) olopatadine 0.1 % eye drops 1 drp ophthalmic (eye) BID 07/22/20 potassium gluconate 595 mg (99 mg) 595 mg PO DAILY 07/22/20 tablet inulin 2 gram chewable tablet 2 g PO DAILY PRN 09/25/20 (Fiber Gummies) tramadol 50 mg tablet 50 mg PO Q6H PRN #25 tabs 09/29/20 atorvastatin 10 mg tablet 20 mg PO DAILY 05/11/23 Current Visit Medications: Current Medications Generic Name Dose Route Start Last Admin Trade Name Freq PRN Reason Stop Dose Admin Acetaminophen 1,000 mg 05/04/24 06:00 Acetaminophen 500 Mg Tab PO 06/03/24 05:59 Q4H PRN PRN Balanced Salt Solution 500 ml 05/04/24 06:00 Balanced Salt Soln.-Plus 500 Ml Bag OP 06/03/24 05:59 DIRECTED S[facility] Miscellaneous Medication 0 ml 05/04/24 06:00 Prednisolone 1%, Moxifloxacin 0.5%, Bromfenac 0.09% 5ml Btl OS 06/03/24 05:59 DIRECTED [facility] Miscellaneous Medication 0 ml 05/04/24 06:00 05/04/24 09:33 Tropicam./Phenyleph. (1/2.5%) 10 Ml Btl OS 06/03/24 05:59 1 drp DIRECTED [facility] Administration Tetracaine HCl 0 ml 05/04/24 06:00 Tetracaine 0.5% 4 Ml Btl OS 06/03/24 05:59 DIRECTED [facility] PFSH Active Problems Active Problems: Problem Status Onset Code Nuclear age-related cataract, left eye H25.12 Nuclear age-related cataract, right eye H25.11 Left renal stone N20.0 Recurrent UTI N39.0 Medical History Medical History Diabetes type I w/ pump Elevated blood pressure reading Breast lump Dysuria Fever Lichen sclerosus of female genitalia Posterior vaginal wall prolapse Constipation Allergic rhinitis Hemorrhoids Obesity HLD (hyperlipidemia) Type 2 diabetes mellitus Pt. is Type I not type II Surgical History Surgical History H/O eye surgery to repair retina Tobacco Smoking/Tobacco Use Status: Never Alcohol Alcohol Intake: never Substance Use Substance use: Never Substance use type: does not use Vital Signs and Lab Results Vital Signs Most Recent Vital Signs in EMR: Most Recent Vital Signs Temp Pulse Resp BP Pulse Ox 36.3 C L 73 16 147/63 H 96 05/04/24 09:16 05/04/24 09:16 05/04/24 09:16 05/04/24 09:16 05/04/24 09:16 Lab Results Blood Type / Crossmatch: No Data to Display Complete Blood Count: No Data to Display Complete Metabolic Panel: No Data to Display Liver Function Panel: No Data to Display Coagulation Panel: No Data to Display Cardiac Panel: No Data to Display Arterial Blood Gas: No Data to Display Venous Blood Gas: No Data to Display Pancreas Panel: No Data to Display Thyroid Panel: No Data to Display Infectious Disease: No Data to Display Blood Cultures: No Data to Display Toxicology Panel: No Data to Display Anesthesia Assessment and Plan Anesthesia History Personal History: No History of Anesthesia Complications Family History: No Family History of Anesthesia Complications Exercise Tolerance Exercise Tolerance: Metabolic Equivalents>4 Pertinent Negatives Pertinent Negatives: No Symptoms of GERD Cardiac & Pulmonary Exam Cardiac Exam: Normal S1/S2 Heart Sounds Pulmonary Exam: Clear Bilateral Breath Sounds Implantable Cardiac Device Does patient have a Pacemaker or an ICD?: No Airway Exam Known Difficult Airway: No Mallampati Class: 2 Mouth Opening: Normal (> 3cm) Thyromental Distance: Greater than 3 cm Neck Range of Motion: Full ROM Neck Circumference: Normal Teeth Condition: Normal Dentition ASA Classification ASA Score: ASA 3 Emergency Case?: No NPO Status NPO Status: NPO Clears >2 hours, Solids >8 hours Anesthesia Plan Resuscitation Status: Full Code Anesthesia Technique: MAC Anesthesia Airway Planned: Natural Airway Monitors Used: Standard Monitors Preoperative Comments:: No MKO
[2024-05-04] MEDS: Tetracaine 0.5% 4 ML BTL OS (10:27)
[2024-05-04] MEDS: Povidone-Iodine Ophth 30 ML BTL (10:28)
[2024-05-04] MEDS: Duovisc Viscoelastic System EACH 1 EACH (10:32)
[2024-05-04] MEDS: Lidocaine 1% Pres-Free 5 ML VIAL (10:33)
[2024-05-04] MEDS: Balanced Salt Soln.-PLUS 500 ML BAG OP (10:37)
--- NOTE | 2024-05-04 10:52 | W.PM.DSUDISC ---
Date of service: 05/04/24 Time of Service: 10:52 Discharge Plan Disposition Patient Disposition: Home Discharge Details Attending Provider: Samir Nixon Primary Care Provider: Enoc Archer Home Meds and New Rx's Prescriptions: No Action clobetasol 0.05 % ointment 1 applic topical QHS estradiol 0.01 % (0.1 mg/gram) cream 1 g vaginal .2xweek insulin lispro [Humalog KwikPen Insulin] 100 unit/mL insulin pen 15 unit subcut TID Patient Comments: 05/04/24: pt on insulin pump Rx Instructions: 15-20 units TID lisinopril 5 mg tablet 5 mg PO DAILY magnesium oxide 400 mg (241.3 mg magnesium) tablet 400 mg PO DAILY meclizine 25 mg tablet 25 mg PO TID PRN Multi For Her 18 mg iron-600 mcg-40 mcg capsule 1 tab-cap PO DAILY olopatadine 0.1 % drops 1 drp ophthalmic (eye) BID Rx Instructions: separate doses by at least 6-8 hours potassium gluconate 595 mg (99 mg) tablet 595 mg PO DAILY cholecalciferol (vitamin D3) 25 mcg (1,000 unit) capsule 25 mcg PO DAILY atorvastatin 10 mg tablet 20 mg PO DAILY Fiber Gummies 2 gram Tablet,Chewable 2 g PO DAILY PRN tramadol 50 mg tablet 50 mg PO Q6H PRNQty: 25 0RF Discharge Instructions Stand Alone Forms: DSU Post-Op Cataract, Claudio Hamilton (DSU) Discharge Orders Discharge Orders: Discharge Order (Routine); Ordered 05/04/24 Ordered By: Samir Nixon DS: Diagnosis Discharge Diagnosis (1) Nuclear age-related cataract, left eye: Status: Resolved
--- NOTE | 2024-05-04 10:52 | W.PM.OP ---
Date of service: 05/04/24 Time of Service: 10:52 Operative Note Operative Note DATE OF PROCEDURE: 05/04/24 PRE-OP DIAGNOSIS: Nuclear cataract, left eye POST-OP DIAGNOSIS: same PROCEDURE: Cataract extraction using phacoemulsification with intraocular lens implant, left eye SURGEON: Samir Nixon ANESTHESIA TYPE: Local By Surgeon and MAC Refer to Anesthesia Record PATHOLOGY: none sent COMPLICATIONS: None Patient was transported to: same day Patient's condition: stable Implants: Heriberto Clareon [id number] Indications: Progressive decreased vision due to cataract, left eye Procedure Description: CATARACT SURGERY OPERATIVE REPORT PREOPERATIVE DIAGNOSIS: Nuclear cataract, left eye POSTOPERATIVE DIAGNOSIS: Same OPERATION: Cataract extraction using phacoemulsification with posterior chamber intraocular lens implant, left eye. IOL: IOL Beater Engineer/Model: Heriberto Clareon [id number] IOL Power: + 23.0 diopters IOL Serial Number: [id number] Optic Diameter: 6.0mm Haptic/Overall Diameter: 13.0mm PHACO INFO: Heriberto Play[employer]urion Vision System with OZil and Active Fluidics Cumulative Dispersed Energy (CDE): 5.69 seconds SURGEON: Samir Nixon MD, RIKKI ANESTHESIA: Monitored Anesthesia Care (MAC), with local sub-tenon's anesthetic infiltration COMPLICATIONS: None SPECIMENS: None INDICATIONS FOR PROCEDURE: Patient is a 73-year-old lady with history of diminished visual acuity in both eyes secondary to the development of bilateral nuclear cataract. She has a previous vitreous hemorrhage in the right eye and underwent pars plana vitrectomy. She had cataract surgery in the right eye 2 weeks ago and is doing well postoperatively. She now presents for cataract surgery in the left eye. See office notes for detailed information. PROCEDURE: The correct surgical eye was identified and marked as the left eye and the pupil was dilated in the preoperative area using mydriatics and cycloplegics. The dilated pupil size was 5.5 mm. The patient elected to proceed without oral sedation. The patient was brought to the operating room where cardiopulmonary monitoring was instituted and surgical time-out was performed, confirming the correct operative eye and IOL power. Topical anesthesia was administered and ophthalmic povidone-iodine 5% was instilled into the conjunctival fornices. The slava-ocular area was prepped with Betadine 10% solution and draped in the usual sterile fashion for intraocular surgery, including an aperture drape. A Tegaderm transparent film dressing was cut in half and used to cover the lashes and lid margins. Care was taken to sequester the lashes and lid margins under the Tegaderm dressing. A lid speculum was placed between the lids of the operative eye and the Hreiberto Lux[employer] Revalia operating microscope was maneuvered into position. Nicole scissors were then used to make a conjunctival buttonhole approximately 6mm posterior to the limbus in the inferonasal quadrant. Blunt dissection was carried out to expose bare sclera, and a blunt-tipped sub-tenon?s anesthesia cannula was introduced and passed posteriorly along the globe where non-preserved plain lidocaine was injected into posterior sub-Tenon?s space. A sideport knife was used to make a paracentesis port. Intraocular phenylephrine/lidocaine was injected into the anterior chamber. The anterior chamber was then filled with viscoelastic. A keratome knife was used construct a two-plane clear corneal tunnel extending 2.0mm into clear cornea. A flap was raised on the anterior capsule and capsulorhexis forceps were used to complete a continuous curvilinear capsulorhexis of 5.0 mm. Balanced salt solution was then used to perform cortical cleaving hydrodissection and nuclear hydrodelineation until the lens could be freely rotated within the capsular bag. The lens nucleus was then disassembled and removed within the capsular bag and iris plane using phacoemulsification. Residual cortical material was removed using the irrigation/aspiration handpiece. The posterior capsule was carefully polished to remove as much residual lens epithelial cells as safely possible. The capsular bag was then inflated and the anterior chamber deepened with viscoelastic. The lens implant described above was inserted into the capsular bag using the Heriberto Autonome Injector. A Kuglen hook was used to dial the IOL into position. Residual viscoelastic was then removed first from posterior to the IOL, then from the anterior chamber using the I/A handpiece. The lens implant was noted to center nicely within the capsular bag. The incisions were stromally hydrated, and the anterior chamber was reformed using BSS. Then 0.5cc of moxifloxacin 1.0mg/ml were injected into the capsular bag and anterior chamber. The incisions were checked with a Weck spear and found to be secure. Several drops of ophthalmic povidone-iodine 5% were then applied to the eye followed by two drops of combination steroid/NSAID/antibiotic solution. The drapes were removed and a clear plastic protective eye shield was placed over the eye. The patient was then returned to Same Day Surgery in stable condition.
[2024-05-04 10:55] VITALS: BP 152/75; PULSE 76; RESP 18; TEMP 36.2; O2SAT 96
--- NOTE | 2024-05-04 11:16 | W.ANESPOSTOP ---
Postoperative Evaluation Date, Time and Location Date Performed: 05/04/24 Time Performed: 11:06 Patient Location: Day Surgery Unit Vital Signs Most Recent Imported Vital Signs: Most Recent Vital Signs Temp Pulse Resp BP Pulse Ox 36.2 C L 76 18 152/75 H 96 05/04/24 10:55 05/04/24 10:55 05/04/24 10:55 05/04/24 10:55 05/04/24 10:55 Assessment Mental Status: Awake (Alert & Oriented to Patient Baseline) Airway and Respiratory Function: Patent airway with normal (patient baseline) respiratory exam Cardiovascular Function: Hemodynamically Stable Hydration Status: Adequately Hydrated Nausea & Vomiting: No Nausea or Vomiting Pain: Pt. Denies Any Pain Peripheral Nerve Block: Other (Local by Dr. Nixon)
== END 2024-05-04 11:12 | disposition home or self-care (01) ==
PROVIDERS: PCP Nurse Practitioner Family; Visit Provider Ophthalmology
PROC: (CPT 66984; principal; 2024-05-04 10:45)
DX: H25.12 Age-related nuclear cataract, left eye (principal); Z98.41 Cataract extraction status, right eye
CPT/HCPCS: 66984; 00123; V2632; J2003

== ENCOUNTER → 2024-05-16 00:23 | Outpatient (CLI) | payer MEDICARE, OTHER, SELFPAY ==
--- NOTE | 2024-05-16 07:15 | DI.RAD_ITS ---
Exam(s) XR ABDOMEN FLAT PLATE EXAM: 2D digital imaging was performed. CLINICAL HISTORY: RECURRENT UTI,LT RENAL STONE,N20.0,N39.0. COMPARISON: CR XR ABDOMEN FLAT PLATE from 08/21/2021 TECHNIQUE: Supine views of the abdomen performed. FINDINGS: BOWEL GAS PATTERN: Nondistended. CALCIFICATIONS: Stable size and appearance of calcification at the lower pole of the left kidney. OSSEOUS STRUCTURES: Normal degenerative disc changes and mild scoliosis. OTHER FINDINGS: None visualized lung bases are clear. IMPRESSION: 1. Nonobstructive bowel gas pattern. 2. Stable size and appearance of left lower pole renal calculus. DATA REPOSITORY: RADIATION DOSE DELIVERED:
== END ==
PROVIDERS: PCP Nurse Practitioner Family; Visit Provider Nurse Practitioner Gerontology
DX: N20.0 Calculus of kidney (principal); N39.0 Urinary tract infection, site not specified
CPT/HCPCS: 74018

== ENCOUNTER 2025-05-07 01:48 | Outpatient (CLI) | payer MEDICARE, OTHER, SELFPAY ==
--- NOTE | 2025-05-07 07:00 | DI.RAD_ITS ---
Exam(s) XR ABDOMEN FLAT PLATE EXAM: 2D digital imaging was performed. CLINICAL HISTORY: h/o renal calculi,[id number]. COMPARISON: CR XR ABDOMEN FLAT PLATE from 05/16/2024 TECHNIQUE: Supine views of the abdomen performed. FINDINGS: BOWEL GAS PATTERN: Nondistended. CALCIFICATIONS: Stable size and appearance of caliceal calcification at the lower pole of the left kidney. No new calculi. The right kidney is partially obscured by electronic device. OSSEOUS STRUCTURES: Degenerative changes and mild scoliosis. Visualized lung bases: Clear. IMPRESSION: 1. Nonobstructive bowel gas pattern. 2. Stable 10 millimeter calculus at the lower pole of the left kidney. DATA REPOSITORY: RADIATION DOSE DELIVERED:
== END 2025-05-07 02:08 ==
PROVIDERS: PCP Nurse Practitioner Family; Visit Provider Nurse Practitioner Gerontology
DX: N20.0 Calculus of kidney (principal); Z87.442 Personal history of urinary calculi
CPT/HCPCS: 74018

== ENCOUNTER → 2025-05-15 12:36 | Outpatient (BNVA) | payer MEDICARE, OTHER, SELFPAY | PROVIDERS: PCP Nurse Practitioner Family; Visit Provider Nurse Practitioner Gerontology | DX: N20.0 Calculus of kidney (principal); N39.41 Urge incontinence | CPT/HCPCS: 99213 ==